=== PATIENT | female | born 1990 | race Caucasian/White ===

== ENCOUNTER 2016-06-20 00:24 | Emergency (ER) | payer SELFPAY ==
[~2016-06-20] VITALS: Ht 162.6 cm; Wt 58.0 kg
[2016-06-20 00:27] VITALS: BP 103/67; PULSE 97; RESP 16; TEMP 97.8; O2SAT 100
[2016-06-20] MEDS ORDERED: BIRTH CONTROL (01:19)
[2016-06-20] MEDS ORDERED: PAXI10TA2 PO (01:19)
[2016-06-20] MEDS ORDERED: LORA-373 PO (01:19)
[2016-06-20] MEDS ORDERED: AMPH1TAB29 PO (01:19)
[2016-06-20] MEDS ORDERED: SODIUM CHLOR 0.9% 1000 ML INJ 1,000 ML IV SCH (01:40)
[2016-06-20] MEDS ORDERED: SODIUM CHLORIDE 0.9% FLUSH 5 ML FLUSH IVF PRN (01:45)
[2016-06-20] MEDS ORDERED: MORPHINE SULFATE 4 MG/ML INJ IV ONE (01:45)
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
[2016-06-20 02:03] LABS: BASOPHIL # 0.1 TH/MM3 (0-0.2); BASOPHIL % 0.6 % (0.0-2.0); EOSINOPHIL # 0.1 TH/MM3 (0-0.4); EOSINOPHIL % 1.3 % (0.0-4.0); HEMATOCRIT 35.5 % (35.0-46.0); HEMO FLAGS DIFF FINAL; MEAN CELL VOLUME 95.2 FL (80.0-100.0); MEAN CORPUSCULAR HEMOGLOBIN 32.6 PG (27.0-34.0); MEAN CORPUSCULAR HGB CONC 34.2 % (32.0-36.0); MONO % 9.6 % (0.0-8.0); NEUT % 55.5 % (16.0-70.0); PLATELET COUNT 247 TH/MM3 (150-450); RED BLOOD COUNT 3.73 MIL/MM3 (4.00-5.30); RED CELL DISTRIBUTION WIDTH 12.8 % (11.6-17.2)
[2016-06-20 02:19] LABS: APTT (PATIENT) 26.6 SEC (24.3-30.1); PROTHROMBIN TIME - PATIENT 10.7 SEC (9.8-11.6)
[2016-06-20 02:27] LABS: ANION GAP 9 MEQ/L (5-15); BICARBONATE 27.2 MEQ/L (21.0-32.0); BLOOD UREA NITROGEN 15 MG/DL (7-18); CHLORIDE 107 MEQ/L (98-107); GLOMERULAR FILTRATION RATE 109 ML/MIN (>89); POTASSIUM 4.1 MEQ/L (3.5-5.1); SODIUM (NA) 143 MEQ/L (136-145)
[2016-06-20 02:30] LABS: BETA HCG QUANT LESS THAN 1 MIU/ML (0-5)
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
[2016-06-20] MEDS ORDERED: IOHEXOL 350 MG/ML 10 ML VIAL (for RAD DIAG) IV ONE (03:22)
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
[2016-06-20] MEDS ORDERED: TRAM50TA PO (04:14)
[2016-06-20] MEDS ORDERED: IBUP-232 PO (04:14)
[2016-06-20] MEDS ORDERED: KETOROLAC TROMETHAMINE 30 MG/ML (IVP) VIAL IV PUSH ONE (04:15)
== END 2016-06-20 04:59 | disposition home or self-care (01) ==
LOC: NEPE 00:24
DX: S06.0X0A Concussion without loss of consciousness, initial encounter (principal); M54.9 Dorsalgia, unspecified; M25.551 Pain in right hip; M25.552 Pain in left hip; S16.1XXA Strain of muscle, fascia and tendon at neck level, initial encounter; V28.1XXA Motorcycle passenger injured in noncollision transport accident in nontraffic accident, initial encounter; Y92.481 Parking lot as the place of occurrence of the external cause
CPT/HCPCS: 70450; 72125; 72131; 73502; 74177; 80048; 84702; 84703; 85025; 85610; 85730; 96361; 96374; 99284; J1885; J2270; J7030; Q9967

== ENCOUNTER 2016-06-20 18:27 | Emergency (ER) | payer SELFPAY ==
[~2016-06-20] VITALS: Ht 162.6 cm; Wt 58.0 kg
[~2016-06-20 18:27] MED LIST: AMPH1TAB29 PO; BIRTH CONTROL; IBUP-232 PO; LORA-373 PO; PAXI10TA2 PO; TRAM50TA PO
[2016-06-20 18:29] VITALS: BP 98/55; PULSE 75; RESP 14; TEMP 98.2; O2SAT 100
== END 2016-06-20 20:36 | disposition left against medical advice (07) ==
LOC: NED 18:27
DX: R68.89 Other general symptoms and signs (principal)
CPT/HCPCS: 99281